=== PATIENT | male | born 2000 | race Native Hawaiian/Other Pacific Islander ===

== ENCOUNTER 2023-11-22 09:33 | Outpatient (CLI) | payer MEDICAID, SELFPAY ==
--- OUTSIDE RECORDS SUMMARY | 2023-11-22 09:36 | XMS_ITS | Clinical Summary ---
Author Organization [facility] Address [place], [place] [address] Care Team Providers Care Net Programmer Name Role Phone Clinic, [facility] Primary Care Pro vider Allergies No known active allergies Medications No known medications Active Problems Problem Noted Date Diagnosed Date Autism spectrum disorder 11/17/2023 Dyslexia, developmental 11/17/2023 Attention deficit hyperactivity disorder (ADHD) 11/17/2023 Developmental expressive writing disorder 2023 ODD (oppositional defiant disorder) 09/20/2010 Encounters Date Type Department Care Team Description 10/25/2023 Travel 10/20/2023 9:00 AM CDT Office Visit [address] [phone] Phuong Collier PsyD, LP Neuropsychological Assessment 10/20/2023 Travel 10/10/2023 9:00 AM CDT Office Visit [address] [phone] Phuong Collier PsyD, LP Neuropsychological Assessment 10/10/2023 Travel 09/27/2023 1:45 PM CDT Telemedicine [address] [phone] Phuong Collier PsyD, LP Establish Care 09/23/[address] [phone] Phuong Collier, PsyD, LP Appointment Reminder from Last 3 Months Immunizations Name Administration Dates Next Due DTaP 12/13/2006,12/09/2005 [id number] (Pediarix) 07/09/2003,04/16/2003,1 2002 HIB PRP-D (ProHIBIT) 12/13/2006,04/16/2003,02/26 HIB PRP-OMP (PedvaxHIB) 04/16/2003,02/26/2003 HPV 9 (Gardasil 9) 02/23/2019,09/06/2017 Hepatitis A (Peds) 02/23/2019,09/06/2017 Hepatitis B (Peds) 2002 Hib Conjugate, Unspecified 12/13/2006 Inactivated Polio Vaccine 09/06/2017 Influenza Virus, Unspecified 03/05/2011 Influenza, IIV3 (Age 6-35 mos) 03/05/2011 Influenza, IIV3 (Age >=3 years) 03/05/2011 Influenza, IIV4 02/23/2019, 8,12/30/2015,11/29 MMR 12/13/2006,12/09/2005 MMRV 12/13/2006 Meningococcal Vaccine (Menactra) 02/23/2019 Meningococcal Vaccine (Menveo) 12/30/2015 Pneumococcal conj 7-Valent (Prevnar 7) 7,04/16/2003,02/26/2003 Tdap 12/30/2015 Varicella Vaccine 12/13/2006,12/09/2005 Social History Tobacco Use Types Packs/Day Years Used Date Smoking Tobacco: Passive Smo ke Exposure - Never Smoker Smokeless Tobacco: Never Alcohol Use Standard Drinks/Week Comments No 0 (1 standard drink = 0.6 oz pur e alcohol) Social Connections Answer Date Recorded Frequency of Communication with Friends and Fami ly Not on file 10/14/2022 Sex and Gender Information Value Date Recorded Sex Assigned at Not on file Gender Identity Not on file Sexual Orientation Not on file Obstetrics History Last Filed Vital Signs Vital Sign Reading Time Taken Comments Blood Pressure 118/72 10/14/2022 3:37 PM CDT Pulse 80 10/14/2022 3:37 PM CDT Temperature 36.3 ??C (97.3 ??F) 01/13/2016 1:33 PM CD T Respiratory Rate 18 06/22/2016 1:26 PM CDT Oxygen Saturation 97% 10/14/2022 3:37 PM CDT Inhaled Oxygen Concentration - - Weight 94.8 kg (209 lb) 10/14/2022 3:37 PM CDT Height 171.5 cm (5' 7.5) 10/14/2022 3:37 PM CDT Body Mass Index 32.25 10/14/2022 3:37 PM CDT Plan of Treatment Health Maintenance Due Date Last Done Comments Depression screening for age 12+ 2014 COVID-19 vaccine series ( season) 2022 05/06/2021 BMI (ht and wt on same day) for age 18+ 10/15/2023 10/14/2022 Well Child Check for age 3-20 10/15/2023 10/14/2022, 12/30/2015 Influenza for age 9-49 11/27/2023 9, 02/22/2018, 12/30/2015, Additional history exists Tetanus booster 12/29/2025 12/30/2015 Pneumococcal series for age 6-64 Aged Out 12/13/2006, 04/16/2003, 02/26/2003 No longer eligible based on patient's age to complete this topic Tdap Completed 12/30/2015 HPV series for age 9-26 Completed 02/23/2019, 09/06 Meningococcal series for age 11-21 Completed 02/23/2019, 12/30/2015 HIV for age 15-65 Completed 10/14/2022 Hepatitis C screening for age 18-79 Completed 10/14/2022 Procedures Procedure Name Priority Date/Time Associated Diagnosis Comments LC HIV-1/O/2, 4TH GENERATION Routine 10/14/2022 4:05 PM CDT Screening for HIV (human immunodeficiency virus) LC HCV ANTIBODY RFX TO QUANT PCR Routine 10/14/2022 4:05 PM CDT Need for hepatitis C screening test from Last 3 Months or Most Recently Relevant to Health Maintenance Results * LC HCV ANTIBODY RFX TO QUANT PCR (10/14/2022 4:05 PM CDT) HCV Ab Non Reactive Non Reactive 10/19/2022 10:17 PM CDT [facility] Blood BLOOD SPECIMEN / Unknown Venipuncture / Unknown 10/14/2022 4:05 PM CDT 10/14/2022 4:07 PM CDT Narrative [facility] - 10/19/2022 10:17 PM CDT Performed at: ??[address] ??[id number] Staple Side Laster: Amaury Acosta MD, Phone: ??[phone] Felicitas Pace MD LABORATORY Performing Organization Address [facility]/ZIP Co de Phone Number [facility] ([facility]) [address] [place] [address] * LC HIV-1/O/2, 4TH GENERATION (10/14/2022 4:05 PM CDT) Pathologist [facility] HIV Scr 4th Gen Non Reactive Non Reactive 10/19/2022 10:17 PM CDT [facility] ([facility]) Comment: HIV Negative HIV-1/HIV-2 antibodies and HIV-1 p24 antigen were NOT detected. There is no laboratory evidence of HIV infection. Blood BLOOD SPECIMEN / Unknown Venipuncture / Unknown 10/14/2022 4:05 PM CDT 10/14/2022 4:07 PM CDT [facility] ([facility]) - 10/19/2022 10:17 PM CDT Performed at: ??[address] ??[id number] Staple Side Laster: Amaury Acosta MD, Phone: ??[phone] Felicitas Pace MD LABORATORY Performing Organization Address City/[facility]/ZIP Co de Phone Number [facility] ([facility]) [address] [place] [address] from Last 3 Months or Most Recently Relevant to Health Maintenance Care Teams Net Programmer Relationship Specialty Start Date End Date Clinic, [address] [address] PCP - General 10/14/22
== END 2023-11-22 09:34 | disposition home or self-care (01) ==
PROVIDERS: PCP Family Medicine; Visit Provider Family Medicine
DX: R53.83 Other fatigue (principal); Z13.228 Encounter for screening for other metabolic disorders; Z13.220 Encounter for screening for lipoid disorders; Z13.29 Encounter for screening for other suspected endocrine disorder; Z13.0 Encounter for screening for diseases of the blood and blood-forming organs and certain disorders involving the immune mechanism
CPT/HCPCS: 80048; 80061; 84443; 85025